=== PATIENT | female | born 1980 | race Caucasian/White ===

== ENCOUNTER 2023-07-20 14:23 | Emergency (ER) | payer OTHER, SELFPAY ==
[2023-07-20] VITALS (13 sets, daily range): BP systolic 104–122; BP diastolic 65–76; PULSE 60–74; RESP 16–18; TEMP 36.2; O2SAT 98–100; BMI 29.1
--- NOTE | 2023-07-20 17:05 | CRLHL7_ITS ---
For Patients: As a result of the Century Cures Act, medical imaging exams and procedure reports are released immediately into your electronic medical record. You may view this report before your referring provider. If you have questions, please contact your health care provider. INDICATION: Left lower quadrant abdominal pain. TECHNIQUE: CT abdomen and pelvis acquired with 89 cc Isovue 3 7 IV contrast. COMPARISON: None. FINDINGS: Lower chest: Unremarkable. Liver: Unremarkable. Normal in size and attenuation. No suspicious masses. Gallbladder and bile ducts: Cholecystectomy. Pancreas: Unremarkable. No mass or inflammation. Spleen: Unremarkable. Normal in size. No masses. Adrenal glands: Unremarkable. No nodules. Kidneys: Unremarkable. No suspicious masses, stones, or hydronephrosis. GI tract: Unremarkable. Normal in caliber. No sign of mass or inflammation. Appendectomy. Vasculature: Abdominal aorta is normal in caliber. Mesenteric arteries are patent. Lymph nodes: No lymphadenopathy. Peritoneum/Abdominal Wall: Unremarkable. No sign of mass or infiltration. No free air or significant free fluid. Pelvis: Unremarkable. Bones: Unremarkable for age. IMPRESSION: Unremarkable CT of the abdomen and pelvis. No findings to explain left lower abdominal pain. Please note that all CT scans at this facility use dose modulation, iterative reconstruction, and/or weight-based dosing when appropriate to reduce radiation dose to as low as reasonably achievable. Dictated by Edgard Fang MD @ 07/20/2023 6:59:31 PM (Electronically Signed)
--- NOTE | 2023-07-20 17:26 | ED.GENADULT ---
HPI - General Adult General Date Seen: 07/20/23 Chief complaint: Abdominal Pain Stated complaint: abdominal pain Time Seen by Provider: 07/20/23 16:47 Source: patient Mode of arrival: ambulatory Limitations: no limitations History of Present Illness HPI narrative: Patient is a 42-year-old woman who presents for evaluation of left lower quadrant pain. She says that her stomach has been a little upset for about a week and she had had a little bit of pain on the left side, but it worsened yesterday. It is fairly low in the lower abdomen/pelvis. It has been constant and crampy since yesterday. She has a history of diverticulitis as well as kidney stones and ovarian cyst rupture, she says it feels most like when her ovarian cyst ruptured, but she is also concerned about diverticulitis since she says she was hospitalized for the ovarian cyst and diverticulitis at the same time. She had some liquid diarrhea couple of days ago, has not had a bowel movement since then which is unusual for her. Possibly notes feeling somewhat constipated. Denies bloody stools. She has had some episodes of feeling hot and cold but has not documented a fever. She denies urinary symptoms. She is status post hysterectomy secondary to endometriosis as well as heavy bleeding, she does not feel that her current pain is reminiscent of her endometriosis. She does still have her ovaries. She has also had an appendectomy and a cholecystectomy as well as multiple laparotomies. She notes nausea but no vomiting. She is here with her , does not smoke, minimal alcohol use. Related Data Allergies Allergy/AdvReac Type Severity Reaction Status Date / Time adhesive tape Allergy Mild Rash Verified 07/20/23 15:21 prochlorperazine Allergy Unknown Verified 07/20/23 15:21 [From Compazine] NSAIDS (Non-Steroidal AdvReac Intermediate Diarrhea Verified 07/20/23 15:21 Anti-Inflamma Review of Systems Status of ROS: Reports: 10 or more systems reviewed and unremarkable except as noted in History and below [facility] Social History Smoking Status: Never smoker Do you use any of these nicotine containing products: None Second hand tobacco smoke exposure: No Non-prescribed substance use: denies use service: No Exam Narrative: Exam Narrative: Vital signs as noted above. In general, an alert, well-appearing woman. She looks comfortable. Head: Normocephalic, atraumatic. Eyes: Pupils are equal reactive. Extraocular movements are full. Conjunctivae are normal. ENT: Mucous membranes are moist. Throat is normal. Neck: Supple without lymphadenopathy. Heart: Regular rate and rhythm. No murmur or rub. Lungs: Clear bilaterally. No increased work of breathing, crackles or wheezes. Abdomen: Nondistended and soft. Some mild left lower quadrant tenderness which is somewhat diffuse, probably worse lower in the left lower quadrant than higher. No rebound guarding or rigidity. Bowel sounds are present. Extremities: Well perfused. No edema. No calf tenderness. Pulses intact. Neurologic: Patient is alert and oriented to person and place. Speech is fluent. Face is symmetric. Moves all extremities equally. Affect: Normal. Skin: Warm and dry. Well perfused. Const: Vital Signs, click to edit/add: Vital Signs - 24 hr 07/20/23 15:21 07/20/23 16:00 07/20/23 18:15 Temperature 97.1 F L Pulse Rate Pulse Rate [Pulse Oximeter] 73 60 63 Respiratory Rate 16 16 18 Blood Pressure Blood Pressure [Ri ght Upper Arm] 118/72 104/68 105/65 Pulse Oximetry 98 100 100 Oxygen Delivery [facility] Room Air Room Air Room Air 07/20/23 18:55 07/20/23 19:15 07/20/23 19:29 Temperature Pulse Rate 67 Pulse Rate [Pulse Oximeter] 67 69 Respiratory Rate 18 16 Blood Pressure Blood Pressure [Ri ght Upper Arm] 115/67 110/68 Pulse Oximetry 100 100 99 Oxygen Delivery [facility] Room Air Room Air 07/20/23 19:30 07/20/23 19:32 07/20/23 19:45 Temperature Pulse Rate 64 67 64 Pulse Rate [Pulse Oximeter] Respiratory Rate Blood Pressure 111/65 Blood Pressure [Ri ght Upper Arm] Pulse Oximetry 99 99 [facility] 07/[facility]/23 19:47 07/20/23 20:09 07/20/23 20:15 Temperature Pulse Rate 64 74 69 Pulse Rate [Pulse Oximeter] Respiratory Rate Blood Pressure 110/65 Blood Pressure [Ri ght Upper Arm] Pulse Oximetry 99 100 [facility] 07/[facility] 20:17 Temperature Pulse Rate 64 Pulse Rate [Pulse Oximeter] Respiratory Rate Blood Pressure 122/76 Blood Pressure [Ri ght Upper Arm] Pulse Oximetry 100 Oxygen Delivery [facility] Documenting provider has reviewed patient's vital signs: yes Course Course ED Course: Differential remains somewhat broad in this patient. All for former diagnoses diverticulitis, kidney stone, and ovarian cyst could be at play. An IV was placed, she was initially given Toradol and Zofran, did request additional pain medication and had 4 mg of morphine. Her white blood cell count was normal at 4.7, hemoglobin of 12.8. Urinalysis was negative, 0-2 red cells and 0-2 white cells. Uterus is surgically absent. Metabolic panel was normal, aside from a mildly low CO2 of 18. LFTs were unremarkable, CRP was less than 0.5. CT scan of the abdomen by my review did not show any suspicious findings, specifically I did not see any inflammatory changes consistent with diverticulitis, she had no hydronephrosis or ureteral stones, and I did not see any free fluid in the pelvis or obvious adnexal abnormalities although I was not able to find her ovaries specifically. Final radiology read is as follows:FINDINGS: Lower chest: Unremarkable. Liver: Unremarkable. Normal in size and attenuation. No suspicious masses. Gallbladder and bile ducts: Cholecystectomy. Pancreas: Unremarkable. No mass or inflammation. Spleen: Unremarkable. Normal in size. No masses. Adrenal glands: Unremarkable. No nodules. Kidneys: Unremarkable. No suspicious masses, stones, or hydronephrosis. GI tract: Unremarkable. Normal in caliber. No sign of mass or inflammation. Appendectomy. Vasculature: Abdominal aorta is normal in caliber. Mesenteric arteries are patent. Lymph nodes: No lymphadenopathy. Peritoneum/Abdominal Wall: Unremarkable. No sign of mass or infiltration. No free air or significant free fluid. Pelvis: Unremarkable. Bones: Unremarkable for age. IMPRESSION: Unremarkable CT of the abdomen and pelvis. No findings to explain left lower abdominal pain. I did order a transvaginal pelvic ultrasound as well in an effort to confirm blood flow to the ovaries. The tech was not able to visualize the ovaries, but I think given that she has had pain since yesterday, the absence of visualization of a large cyst or an enlarged swollen ovary is likely evidence that this does not represent torsion. The gradual onset of pain is also atypical for torsion. Overall, discussed with her I do not have a clear explanation for her symptoms, but I think it is reasonable to let her go home with outpatient follow-up. She does not currently have a primary clinic, I think it would be reasonable her her to follow-up with [facility] given her history of endometriosis. Advised her she may end up needing a primary care doctor as well. Return for worsening symptoms, severe pain, fevers, vomiting or other new symptoms. Ibuprofen 400 mg plus Tylenol 1000 mg 3 times daily as needed with food. I provided oxycodone, 4., out of [employer]. Advised that this is habit-forming and can worsen constipation. Vital Signs Vital signs: Initial Vital Signs Temperature 97.1 F L 07/20/23 15:21 Temperature Source Temporal Artery Scan 07/20/23 15:21 Pulse Rate 73 07/20/23 15:21 Pulse Rhythm Regular 07/20/23 15:21 Respiratory Rate 16 07/20/23 15:21 Blood Pressure 118/72 07/20/23 15:21 Blood Pressure Mean 87 07/20/23 15:21 Blood Pressure Position Sitting 07/20/23 15:21 Pulse Oximetry 98 07/20/23 15:21 Oxygen Delivery Method Room Air 07/20/23 15:21 Vital Signs Temperature 97.1 F L 07/20/23 15:21 Pulse Rate 73 07/20/23 15:21 Respiratory Rate 16 07/20/23 15:21 Blood Pressure 118/72 07/20/23 15:21 Pulse Oximetry 98 07/20/23 15:21 Oxygen Delivery Method Room Air 07/20/23 15:21 Temperature 97.1 F L 07/20/23 15:21 Pulse Rate 64 07/20/23 20:17 Respiratory Rate 16 07/20/23 19:15 Blood Pressure 122/76 07/20/23 20:17 Pulse Oximetry 100 07/20/23 20:17 Oxygen Delivery Method Room Air 07/20/23 19:15 Medications Administered Medications: Discontinued Medications Generic Name Dose Route Start Last Admin Trade Name Freq PRN Reason Stop Dose Admin Sodium Chloride 1,000 mls @ 1,000 mls/hr 07/20/23 17:15 07/20/23 18:38 0.9 % Sodium Chloride 1000 Ml IV 07/20/23 18:14 Infused .Q1H DENZEL Infusion Ketorolac Tromethamine 15 mg 07/20/23 17:04 07/20/23 17:47 Ketorolac 15 Mg/Ml Inj IVP 07/20/23 17:05 15 mg ONCE ONE Administration Morphine Sulfate 4 mg 07/20/23 18:59 07/20/23 19:23 Morphine 4 Mg/Ml Inj IVP 07/20/23 19:00 4 mg ONCE ONE Administration Ondansetron HCl 4 mg 07/20/23 17:04 07/20/23 17:47 Ondansetron 2 Mg/Ml Inj IVP 07/20/23 17:05 4 mg ONCE ONE Administration Medical Decision Making Lab Data Labs: Lab Results 07/20/23 07/20/23 07/20/23 Range/Units 17:38 17:38 17:38 WBC 4.67 (4.50-11.00) K/uL RBC 4.29 (4.00-5.20) m/uL Hgb 12.8 (12.0-16.0) gm/dL Hct 38.8 (33.0-51.0) % MCV 90 (80-100) fL MCH 30 (26-34) pg MCHC 33 (32-36) gm/dL RDW Coeff of Jaime 12.2 (11.5-15.5) % Plt Count 239 (140-440) K/uL Neut % (Auto) 51.5 (42.0-72.0) % Lymph % (Auto) 37.5 (20-44) % Phillips % (Auto) 5.6 (0.0-11.0) % Eos % (Auto) 3.9 (0.0-7.0) % Baso % (Auto) 0.9 (0.0-3.0) % Neut # (Auto) 2.41 (1.7-7.0) K/uL Lymph # (Auto) 1.75 (0.90-2.90) K/uL Phillips # (Auto) 0.30 (0.00-0.90) K/UL Eos # (Auto) 0.18 (0.00-0.50) K/uL Baso # (Auto) 0.04 (0.00-0.30) K/uL Abs Immat Gran (auto) 0.03 (0.00-0.30) K/uL Imm/Tot Granulo (auto) 0.6 % Sodium Cancelled 139 Potassium Cancelled 3.9 Chloride Cancelled Carbon Dioxide Anion Gap BUN Creatinine Estimated Creat Clear Estimated GFR Glucose Calcium Total Bilirubin (0.1-1.5) mg/dL Direct Bilirubin (0.0-0.5) mg/dL AST (12-35) U/L ALT (4-35) U/L Alkaline Phosphatase (40-150) U/L C-Reactive Protein (0.5-1.0) mg/dL Total Protein (6.0-8.3) g/dL Albumin (3.3-5.0) g/dL Urine Color (Yellow) Urine Appearance (Clear) Urine pH (5.0-8.5) Ur Specific [place] (1.000-1.030) Urine Protein (Negative) Urine Glucose (UA) (Negative) Urine Ketones (Negative) Urine Blood (Negative) Urine Nitrite (Negative) Urine Bilirubin (Negative) Urine Urobilinogen (0.2-1.0) Ur Leukocyte Esterase (Negative) Urine RBC (0-2) Urine WBC (0-5) Ur Squamous Epith Cells (None-Few) Urine Bacteria (None) 07/20/23 07/20/23 07/20/23 Range/Units 17:38 17:38 17:38 WBC (4.50-11.00) K/uL RBC (4.00-5.20) m/uL Hgb (12.0-16.0) gm/dL Hct (33.0-51.0) % MCV (80-100) fL MCH (26-34) pg MCHC (32-36) gm/dL RDW Coeff of Jaime (11.5-15.5) % Plt Count (140-440) K/uL Neut % (Auto) (42.0-72.0) % Lymph % (Auto) (20-44) % Phillips % (Auto) (0.0-11.0) % Eos % (Auto) (0.0-7.0) % Baso % (Auto) (0.0-3.0) % Neut # (Auto) (1.7-7.0) K/uL Lymph # (Auto) (0.90-2.90) K/uL Phillips # (Auto) (0.00-0.90) K/UL Eos # (Auto) (0.00-0.50) K/uL Baso # (Auto) (0.00-0.30) K/uL Abs Immat Gran (auto) (0.00-0.30) K/uL Imm/Tot Granulo (auto) % Sodium Potassium Chloride 110 Carbon Dioxide Cancelled 18 L Anion Gap Cancelled 11 BUN Cancelled Creatinine Estimated Creat Clear Estimated GFR Glucose Calcium Total Bilirubin (0.1-1.5) mg/dL Direct Bilirubin (0.0-0.5) mg/dL AST (12-35) U/L ALT (4-35) U/L Alkaline Phosphatase (40-150) U/L C-Reactive Protein (0.5-1.0) mg/dL Total Protein (6.0-8.3) g/dL Albumin (3.3-5.0) g/dL Urine Color (Yellow) Urine Appearance (Clear) Urine pH (5.0-8.5) Ur Specific [place] (1.000-1.030) Urine Protein (Negative) Urine Glucose (UA) (Negative) Urine Ketones (Negative) Urine Blood (Negative) Urine Nitrite (Negative) Urine Bilirubin (Negative) Urine Urobilinogen (0.2-1.0) Ur Leukocyte Esterase (Negative) Urine RBC (0-2) Urine WBC (0-5) Ur Squamous Epith Cells (None-Few) Urine Bacteria (None) 07/20/23 07/20/23 07/20/23 Range/Units 17:38 17:38 17:38 WBC (4.50-11.00) K/uL RBC (4.00-5.20) m/uL Hgb (12.0-16.0) gm/dL Hct (33.0-51.0) % MCV (80-100) fL MCH (26-34) pg MCHC (32-36) gm/dL RDW Coeff of Jaime (11.5-15.5) % Plt Count (140-440) K/uL Neut % (Auto) (42.0-72.0) % Lymph % (Auto) (20-44) % Phillips % (Auto) (0.0-11.0) % Eos % (Auto) (0.0-7.0) % Baso % (Auto) (0.0-3.0) % Neut # (Auto) (1.7-7.0) K/uL Lymph # (Auto) (0.90-2.90) K/uL Phillips # (Auto) (0.00-0.90) K/UL Eos # (Auto) (0.00-0.50) K/uL Baso # (Auto) (0.00-0.30) K/uL Abs Immat Gran (auto) (0.00-0.30) K/uL Imm/Tot Granulo (auto) % Sodium Potassium Chloride Carbon Dioxide Anion Gap BUN 14 Creatinine Cancelled 0.9 Estimated Creat Clear Cancelled 77.79 Estimated GFR Cancelled Glucose Calcium Total Bilirubin (0.1-1.5) mg/dL Direct Bilirubin (0.0-0.5) mg/dL AST (12-35) U/L ALT (4-35) U/L Alkaline Phosphatase (40-150) U/L C-Reactive Protein (0.5-1.0) mg/dL Total Protein (6.0-8.3) g/dL Albumin (3.3-5.0) g/dL Urine Color (Yellow) Urine Appearance (Clear) Urine pH (5.0-8.5) Ur Specific [place] (1.000-1.030) Urine Protein (Negative) Urine Glucose (UA) (Negative) Urine Ketones (Negative) Urine Blood (Negative) Urine Nitrite (Negative) Urine Bilirubin (Negative) Urine Urobilinogen (0.2-1.0) Ur Leukocyte Esterase (Negative) Urine RBC (0-2) Urine WBC (0-5) Ur Squamous Epith Cells (None-Few) Urine Bacteria (None) 07/20/23 07/20/23 07/20/23 Range/Units 17:38 17:38 17:38 WBC (4.50-11.00) K/uL RBC (4.00-5.20) m/uL Hgb (12.0-16.0) gm/dL Hct (33.0-51.0) % MCV (80-100) fL MCH (26-34) pg MCHC (32-36) gm/dL RDW Coeff of Jaime (11.5-15.5) % Plt Count (140-440) K/uL Neut % (Auto) (42.0-72.0) % Lymph % (Auto) (20-44) % Phillips % (Auto) (0.0-11.0) % Eos % (Auto) (0.0-7.0) % Baso % (Auto) (0.0-3.0) % Neut # (Auto) (1.7-7.0) K/uL Lymph # (Auto) (0.90-2.90) K/uL Phillips # (Auto) (0.00-0.90) K/UL Eos # (Auto) (0.00-0.50) K/uL Baso # (Auto) (0.00-0.30) K/uL Abs Immat Gran (auto) (0.00-0.30) K/uL Imm/Tot Granulo (auto) % Sodium Potassium Chloride Carbon Dioxide Anion Gap BUN Creatinine Estimated Creat Clear Estimated GFR 83 Glucose Cancelled 81 Calcium Cancelled 8.9 Total Bilirubin 0.3 (0.1-1.5) mg/dL Direct Bilirubin 0.1 (0.0-0.5) mg/dL AST 21 (12-35) U/L ALT 10 (4-35) U/L Alkaline Phosphatase 52 (40-150) U/L C-Reactive Protein < 0.5 L (0.5-1.0) mg/dL Total Protein 7.2 (6.0-8.3) g/dL Albumin 4.5 (3.3-5.0) g/dL Urine Color (Yellow) Urine Appearance (Clear) Urine pH (5.0-8.5) Ur Specific [place] (1.000-1.030) Urine Protein (Negative) Urine Glucose (UA) (Negative) Urine Ketones (Negative) Urine Blood (Negative) Urine Nitrite (Negative) Urine Bilirubin (Negative) Urine Urobilinogen (0.2-1.0) Ur Leukocyte Esterase (Negative) Urine RBC (0-2) Urine WBC (0-5) Ur Squamous Epith Cells (None-Few) Urine Bacteria (None) 07/20/23 Range/Units 18:46 WBC (4.50-11.00) K/uL RBC (4.00-5.20) m/uL Hgb (12.0-16.0) gm/dL Hct (33.0-51.0) % MCV (80-100) fL MCH (26-34) pg MCHC (32-36) gm/dL RDW Coeff of Jaime (11.5-15.5) % Plt Count (140-440) K/uL Neut % (Auto) (42.0-72.0) % Lymph % (Auto) (20-44) % Phillips % (Auto) (0.0-11.0) % Eos % (Auto) (0.0-7.0) % Baso % (Auto) (0.0-3.0) % Neut # (Auto) (1.7-7.0) K/uL Lymph # (Auto) (0.90-2.90) K/uL Phillips # (Auto) (0.00-0.90) K/UL Eos # (Auto) (0.00-0.50) K/uL Baso # (Auto) (0.00-0.30) K/uL Abs Immat Gran (auto) (0.00-0.30) K/uL Imm/Tot Granulo (auto) % Sodium Potassium Chloride Carbon Dioxide Anion Gap BUN Creatinine Estimated Creat Clear Estimated GFR Glucose Calcium Total Bilirubin (0.1-1.5) mg/dL Direct Bilirubin (0.0-0.5) mg/dL AST (12-35) U/L ALT (4-35) U/L Alkaline Phosphatase (40-150) U/L C-Reactive Protein (0.5-1.0) mg/dL Total Protein (6.0-8.3) g/dL Albumin (3.3-5.0) g/dL Urine Color Yellow (Yellow) Urine Appearance Clear (Clear) Urine pH 6.0 (5.0-8.5) Ur Specific [place] 1.010 (1.000-1.030) Urine Protein Negative (Negative) Urine Glucose (UA) Negative (Negative) Urine Ketones 1+ A (Negative) Urine Blood Negative (Negative) Urine Nitrite Negative (Negative) Urine Bilirubin Negative (Negative) Urine Urobilinogen 0.2 (0.2-1.0) Ur Leukocyte Esterase Negative (Negative) Urine RBC 0-2 (0-2) Urine WBC 0-2 (0-5) Ur Squamous Epith Cells Few (None-Few) Urine Bacteria None (None) Discharge Plan Discharge Clinical Impression: Abdominal pain, LLQ Patient Disposition: Home, Self-Care Condition: Improved Instructions: Acute Abdominal Pain (ED) Additional Instructions: Ibuprofen 400 mg plus Tylenol 1000 mg 3 times daily as needed with food. Oxycodone if needed for more severe pain, be aware this is habit-forming and can cause significant constipation, use only if needed. Discard any unused tablets. I would recommend primary care follow-up in the next week for recheck. If you have worsening symptoms or new symptoms such as vomiting, fevers, etcetera return at any time to the emergency department. Follow Up/Referrals: Provider,Not a Local [Primary Care Provider] - Stand Alone Forms: [employer] Info Instructions
[2023-07-20] MEDS: KETOROLAC 15 MG/ML inj IVP (17:47)
[2023-07-20] MEDS: ONDANSETRON 2 MG/ML inj 4 MG IVP (17:47)
[2023-07-20] MEDS: 0.9 % SODIUM CHLORIDE 1000 ml 1,000 ML IV (17:47)
[2023-07-20 17:59] LABS: Basophils Absolute Auto 0.04 K/uL (0.00-0.30); Basophils Percent Auto 0.9 % (0.0-3.0); Eosinophils Absolute Auto 0.18 K/uL (0.00-0.50); Eosinophils Percent Auto 3.9 % (0.0-7.0); Hematocrit 38.8 % (33.0-51.0); Hemoglobin* 12.8 gm/dL (12.0-16.0); Immature Granulocytes Abs Auto 0.03 K/uL (0.00-0.30); Immature Granulocytes Pct Auto 0.6 %; Lymphocytes Absolute Auto 1.75 K/uL (0.90-2.90); Lymphocytes Percent Auto 37.5 % (20-44); Mean Corpuscular HGB Conc 33 gm/dL (32-36); Mean Corpuscular Hemoglobin 30 pg (26-34); Mean Corpuscular Volume 90 fL (80-100); Monocytes Percent Auto 5.6 % (0.0-11.0); Neutrophils Absolute Auto 2.41 K/uL (1.7-7.0); Neutrophils Percent Auto 51.5 % (42.0-72.0); Platelet Count* 239 K/uL (140-440); RDW Coefficient of Variation % 12.2 % (11.5-15.5); Red Blood Count 4.29 m/uL (4.00-5.20); White Blood Count* 4.67 K/uL (4.50-11.00)
[2023-07-20 18:07] LABS: Slide Review Reflex No
[2023-07-20 18:11] LABS: Chloride* 110 mmol/L (96-114)
[2023-07-20 18:12] LABS: Albumin* 4.5 g/dL (3.3-5.0); Potassium* 3.9 mmol/L (3.6-5.1); Sodium* 139 mmol/L (135-149)
[2023-07-20 18:14] LABS: Creatinine* 0.9 mg/dL (0.5-1.5); Est. Creatinine Clearance* 77.79; Estimated Glomerular Filt Rate 83 ml/min
[2023-07-20 18:15] LABS: Alanine Aminotransferase* 10 U/L (4-35); Alkaline Phosphatase* 52 U/L (40-150); Anion Gap 11 mEq/L (7-15); Aspartate Amino Transferase* 21 U/L (12-35); Bilirubin Direct* 0.1 mg/dL (0.0-0.5); Bilirubin Total* 0.3 mg/dL (0.1-1.5); Blood Urea Nitrogen* 14 mg/dL (5-24); Calcium* 8.9 mg/dL (8.4-10.6); Carbon Dioxide* 18 mmol/L (20-32); Glucose* 81 mg/dL (60-115); Total Protein* 7.2 g/dL (6.0-8.3)
[2023-07-20 18:22] LABS: C Reactive Protein* < 0.5 mg/dL (0.5-1.0)
[2023-07-20 18:56] LABS: Appearance Urine Clear (Clear); Bilirubin Urine Negative (Negative); Blood Urine Negative (Negative); Color Urine Yellow (Yellow); Glucose Urine Negative (Negative); Ketones Urine 1+ (Negative); Leukocyte Esterase Urine Negative (Negative); Nitrite Urine Negative (Negative); Protein Urine Negative (Negative); Urobilinogen Urine 0.2 (0.2-1.0)
[2023-07-20 19:19] LABS: RBC Urine 0-2 (0-2); Squamous Epithelial Cell Urine Few (None-Few); WBC Urine 0-2 (0-5)
--- NOTE | 2023-07-20 19:22 | CRLHL7_ITS ---
For Patients: As a result of the Cures Act, medical imaging exams and procedure reports are released immediately into your electronic medical record. You may view this report before your referring provider. If you have questions, please contact your health care provider. INDICATION: Left lower quadrant pain. History of hysterectomy and ovarian cysts. COMPARISON: Same day CT of the abdomen and pelvis. TECHNIQUE: 2D peñaloza scale and color Doppler images were acquired of the pelvis using a transvaginal approach. FINDINGS: The uterus is surgically absent. The ovaries were not visualized. No suspicious adnexal mass. No free fluid in the pelvis. IMPRESSION: 1. Surgically absent uterus. 2. Nonvisualization of the ovaries. No suspicious adnexal mass. Dictated by Hillary Spence MD @ 07/20/2023 9:15:49 PM (Electronically Signed)
[2023-07-20] MEDS: MORPHINE 4 MG/ML INJ IVP (19:23)
== END 2023-07-20 20:33 | disposition home or self-care (01) ==
PROVIDERS: Emergency Provider Emergency Medicine
DX: R10.32 Left lower quadrant pain (principal)
CPT/HCPCS: 36415; 74177; 76830; 76856; 80048; 80076; 81001; 85025; 86140; 96374; 96375; 99284; 99285; J1885; J2270; J2405; J7030; Q9967